=== PATIENT | male | born 1965 | race Caucasian/White ===

== ENCOUNTER 2021-05-19 07:59 | Inpatient (IN) ==
--- NOTE | 2021-05-03 08:04 | History & Physical Report ---
Date of Service May 03, 2021 date of surgery: 05/19/21 Procedure: Bilateral Total Knee Arthroplasty Surgeon: Kyrie Cowart Assessment & Plan (1) Degenerative arthritis of knee, bilateral: Plan: Risks and benefits of procedure discussed in detail today, patient would like to proceed with Bilateral total knee replacements at [facility] as scheduled. will obtain medical clearance from Dr Wheeler prior to surgery as well as obtain PATs at [facility]. Will place on Xarelto x 2 weeks post-op, f/u 2 weeks post op for routine post-operative care and x-ray, sooner if having any problems. will make arrangements for HHPT at the time of discharge. At this point in time, has failed conservative measures and would like to proceed with surgical intervention. The risks and benefits have been discussed including, but not limited to, risk of infection, nerve injury, stiffness, loss of motion, failure to improve, etc. Reasonable outcomes and options of treatment were discussed. An explanation of appropriate alternatives to the procedure that may be advantageous were discussed and their risks and benefits, as well as the risks and benefits of not proceeding with treatment. I offered to answer any additional inquiries concerning the treatment involved. All the patient's questions were answered. The patient is agreeable, understanding of the treatment plan and alternatives, and wishes to proceed with the treatment plan. History of Present Illness Chief Complaint: Bilateral knee pain Primary Care Provider: Hal Curiel MD Mr Celso BRISENO is a 56 year old male who complains of bilateral knee pain, presents for pre-op evaluation prior to bilateral total knee replacements at [facility]. He states that the symptoms have been chronic non-traumatic and has gradually worsened. Currently the patient states that the symptoms are moderate- severe and is described as aching, throbbing, sharp and shooting. The symptoms are aggravated by ascending stairs, daily activities, descending stairs, driving, exercise, first steps while awake, jumping, kneeling, movement, repetitive activities, sleeping in any position, squatting, standing and walking. In addition to knee pain equally on both sides the patient is also experiencing decreased mobility, crepitus, difficulty bending, difficulty going to sleep, instability, joint pain, limping, locking, nighttime awakening, pain, stiffness, tenderness and weakness. Prior NSAIDs include IBU and Aleve. Patient has had arthroscopic surgery. 04/10/12 Dr. Minor performed Arthroscopic partial medial meniscectomy, right knee. 02/08/11 Dr. Cowart performed Arthroscopic partial medial meniscectomy, Removal of multiple chondral loose bodies. Allergies Allergy/AdvReac Type Severity Reaction Status Date / Time No Known Allergies Allergy Verified 12/11/20 16:15 Home Medications Medication Instructions Recorded Confirmed Type aspirin 325 mg tablet 650 mg PO DAILY PRN 11/20/19 12/11/20 History naproxen sodium 220 mg capsule 220 mg PO Q12H PRN 11/20/19 12/11/20 History (Aleve) zinc 1 tab PO QPM 11/20/19 12/11/20 History Past Med/Surg History Medical History Osteoarthritis Surgical History History of arthroscopy of left knee History of arthroscopy of right knee History of tonsillectomy Family History Other No family history of adverse response to anesthesia Social History Smoking Status: Never smoker Second Hand Exposure: No; Hx Alcohol Use: Yes Hx Substance Use: No Preferred Language: Armenian Communication Ability: Effective Shot Core Drill Operator Required: No Beliefs That Will Affect Care: Uatsdin Uatsdin Beliefs: Restorationism Current Living Situation: Spouse Feels Safe at Home: Yes Assistive Devices: None Review of Systems Review of Systems: All systems reviewed & are unremarkable except as noted in HPI & below Constitutional: no fever, no chills and no sweats Respiratory: no cough and no dyspnea Cardiovascular: no chest pain, no dyspnea and no orthopnea Gastrointestinal: no abdominal pain, no nausea and no vomiting Musculoskeletal: as per Subjective / HPI Physical Exam Physical Exam: HT: 5ft 8in WT: 81.6kg BP: 140/82 Pulse: 90 Constitutional: WD/WN, vitals as above no acute distress Respiratory: normal respiratory effort, lungs clear to auscultation no respiratory distress, no labored breathing and does not use accessory muscles Cardiovascular: RRR, no murmur, no edema Gastrointestinal (Abdomen): normal bowel sounds, soft, nontender, no hepatosplenomegaly Musculoskeletal: Bilateral knee Physical exam Overall patient has varus alignment bilaterally, there is no atrophy or ecchymosis noted, +1 suprapatellar effusion in both knees, positive tenderness to both medial and lateral joint lines right knee, more medial sided tenderness to the left knee. negative patellar apprehension, positive crepitation noted to both knees with active ROM. bilateral knees stable to valgus and varus stress, efrain negative, posterior drawer negative. Range of motion right knee 0/3/110, left knee 0/3/115. lower extremities are neurovascularly intact, calf soft and non tender, DP pulse +2 bilaterally. Results & Data Results & Data ([place]) Diagnostic Findings bilateral knee series confirm advanced degenerative changes bilateral knees, greatest medial compartments and patellofemoral joints, showing joint space narrowing, osteophyte formation and subchondral sclerosis. no acute bony pathology noted, overall varus alignment bilateral.
--- NOTE | 2021-05-06 08:35 | Anesthesiology Consultation ---
Date of Service May 06, 2021 Assessment & Plan (1) Encounter for pre-operative examination: - COVID screening: Per assessment on 05/05: Travel screen negative, no known COVID-19 positive contacts or current COVID-19 related symptoms. Surgeon arranging preop COVID testing. Awaiting results. - PCP office visit (05/04/21): "Pt cleared for surgery." Chart Review Chart Review: Acceptable Risk for Surgery and Patient NOT seen in Pre Admission Testing History Surgery Operation Date: 05/19/21 11:30 Proposed Procedures p Bilateral Total Knee Arthroplasty - Kyrie Cowart DO Height/Weight Height: 5 ft 8 in Weight: 90.718 kg Allergies Allergy/AdvReac Type Severity Reaction Status Date / Time No Known Allergies Allergy Verified 05/05/21 15:07 Medications Home Medications Medication Instructions Recorded Confirmed Last Taken aspirin 325 mg tablet 650 mg PO DAILY PRN 11/20/19 05/05/21 Unknown naproxen sodium 220 mg capsule 220 mg PO Q12H PRN 11/20/19 05/05/21 Unknown (Aemrica) Past Medical History Medical History History of COVID-19 Tested positive 01/18/21 ([facility]). Symptoms at time: nausea, vomiting and diarrhea, fatigue. Treated at [facility] ER for dehydration and received Covid antibody treatment at [facility] > resolved Osteoarthritis Past Family History Family History Other No family history of adverse response to anesthesia Past Surgical History Surgical History History of arthroscopy of left knee History of arthroscopy of right knee History of tonsillectomy Social History Smoking Status: Never smoker Do You Dip or Chew Tobacco: No Hx Alcohol Use: Yes alcohol intake frequency: holidays/special occasions only Hx Substance Use: No substance use type: does not use Lab Results Anesthesia Preop Results Results Anesthesia Widget: WBC 5.30 K/uL (4.8-10.8) 05/05/21 Hgb 15.8 g/dL (14.0-18.0) 05/05/21 Hct 44.4 % (42-52) 05/05/21 Plt 241 K/uL (130-400) 05/05/21 Na 139 mmol/L (136-145) 05/05/21 K 3.9 mmol/L (3.5-5.1) 05/05/21 Cl 107 mmol/L (98-107) 05/05/21 CO2 26 mmol/L (21-32) 05/05/21 BUN 15 mg/dl (6-23) 05/05/21 Creat 0.89 mg/dl (0.6-1.4) 05/05/21 Glucose Level 103 mg/dl (70-99(Fasting)) H 05/05/21 PT 10.6 Seconds (9.0-12.0) 05/05/21 PTT 27.1 Seconds (21.0-31.0) 05/05/21 INR 1.0 (0.9-1.1) 05/05/21 HA1c 4.8 % (4.5-5.6) 05/05/21 Urine Color Yellow 05/05/21 Urine Appearance Clear (Clear) 05/05/21 Urine pH 5.0 (4.5-7.5) 05/05/21 Urine Specific [place] 1.019 (1.000-1.030) 05/05/21 Urine Protein Negative (Negative) 05/05/21 Urine Glucose (UA) Negative (Negative) 05/05/21 Urine Ketones Negative (Negative) 05/05/21 Urine Blood 1+ (Negative) H 05/05/21 Urine Nitrite Negative (Negative) 05/05/21 Urine Bilirubin Negative (Negative) 05/05/21 Urine Urobilinogen Negative (Negative) 05/05/21 Urine Leukocyte Esterase Negative (Negative) 05/05/21 Urine WBC (Auto) 1-5 /hpf (0-5) 05/05/21 Urine RBC (Auto) 0-4 /hpf (0-4) 05/05/21 Urine Hyaline Casts (Auto) 1-5 /lpf (0-5) 05/05/21 Urine Epithelial Cells (Auto) 5-10 /lpf (0-5) H 05/05/21 Urine Bacteria (Auto) Negative (Negative) 05/05/21 Testing Electrocardiogram Date: 12/15/20 Findings:+ NSR @ (74bpm ) Normal EKG per cardio Chest X-Ray Date: 12/15/20 Findings: + NAD
[~2021-05-19 07:59] MED LIST: ACETAMINOPHEN 500 MG TAB PO SCH; CeleBREX 200 MG CAP PO SCH; FAMOTIDINE 20 MG TAB PO SCH; GABAPENTIN 600 MG DOSE PO SCH; LR 500ML BOLUS, THEN 15ML/HR IV SCH; METOCLOPRAMIDE HCL 10 MG TABLET PO SCH; ROPIVACAINE 0.5% HCL/PF 150 MG, BUPIVACAINE 0.75% MPF 20 ML, EPINEPHrine 30MG/30ML (OR ... INSTIL SCH; TRANEXAMIC ACID 1,000 MG **IV Intra-op IV SCH; TRANEXAMIC ACID 1,000 MG **IV Pre-op IV SCH; ceFAZolin 2000MG 2,000 MG/15 ML SYR IV SCH; dexAMETHasone 4 MG TAB PO SCH; oxyCODONE HCL 10 MG TABCR (OxyCONTIN) PO SCH
[2021-05-19] MEDS ORDERED: ROPIVACAINE 0.5% 5 MG/ML 30 ML VIAL ONE (08:44)
[2021-05-19] MEDS ORDERED: BUPIVACAINE 0.5 % 5 MG/1 ML PF 10ML VIAL ONE (08:44)
--- NOTE | 2021-05-19 08:54 | History & Physical Bridge Note ---
Date of Service May 19, 2021 History & Physical Bridge Note I have examined the patient, reviewed the History & Physical and in the interval since the performance of the History & Physical I have noted the following changes of clinical significance: no changes noted
[2021-05-19] MEDS ORDERED: fentaNYL citrate 100 MCG/2 ML VIAL IV PRN (10:08)
[2021-05-19] MEDS ORDERED: ATROPINE SULFATE 0.1 MG/ML 10ML SYR IV PRN (10:08)
[2021-05-19] MEDS ORDERED: ONDANSETRON INJ 2 MG/ML 2 ML VIAL IV PRN ×2 (10:08→14:56)
[2021-05-19] MEDS ORDERED: ePHEDrine sulfate 50 MG/ML AMP IV PRN (10:08)
[2021-05-19] MEDS ORDERED: MIDAZOLAM HCL 1 MG/ML 2ML VIAL ONE (10:38)
[2021-05-19] MEDS ORDERED: fentaNYL citrate 100 MCG/2 ML VIAL ONE (10:38)
[2021-05-19] MEDS ORDERED: ORTHO JOINT ANESTHETIC ONE (10:56)
[2021-05-19] MEDS ORDERED: LIDOCAINE 2%/EPINEPHRINE 1:200,000 20 ML SDV ONE (11:46)
[2021-05-19] MEDS ORDERED: PROPOFOL IV EMULSION 10 MG/ML 20 ML VIAL IV ONE (13:03)
--- NOTE | 2021-05-19 13:16 | Operative Report ---
Post Operative Report Pre & Post Diagnosis Operation Date: 05/19/21 10:35 Pre-Op Diagnosis: Right Knee Osteoarthritis, Left Knee Osteoarthritis Post-Op Diagnosis: Right Knee Osteoarthritis, Left Knee Osteoarthritis I identified the patient and participated in the time-out.: Yes Procedure Operation Date: 05/19/21 10:35 Actual Procedures p Bilateral Total Knee Arthroplasty(Bilateral) utilizing [employer] journey to nonblock total knee arthroplasty left size 6 femur size 6 tibia 10 polyethylene patella 32 oval right size 6 femur 6 tibia 12 polyethylene size 35 patella Kyrie Cowart DO Surgeon Kyrie Cowart DO [employer] Lab Technician Lucio GOTTI Estimated Blood Loss 10 Findings Consistent with Post-Op Diagnosis Patient presents with severe end-stage DJD 8 degree flexion contractures of bilateral knees varus alignment subchondral eburnated [id number] bilateral knees with marginal osteophytes moderate to large effusion subchondral cystic changes on the tibial side on both knees Specimens Bone and cartilage Drains Medium bore Hemovac Anesthesia Type MAC Spinal Regional Complications none Disposition Accompanied Patient To Recovery: No Disposition: Recovery Room Indications Patient presents with severe end-stage tricompartmental DJD [id number] eburnated bone as described above patient is failed times a viscosupplementation corticosteroid injection relative rest activity modification patient presents with severe end-stage DJD with varus knees for total knee arthroplasty bilateral Description of Procedure After proper prepping and draping of the bilateral lower extremities, an anterior midline incision was made over the region of the extensor extensor mechanism of the left knee. After meticulous hemostasis was obtained and maintained in subcutaneous tissues a medial parapatellar incision was made The patella was subluxed lateralward the medial lateral gutter were cleaned from any hypertrophic synovitis and scar tissue of the distal femoral block was placed and the distal femoral osteotomy cut was made subsequently the chamfers anterior and posterior osteotomy cuts were made utilizing the 4-in-1 block the tibia was subsequently subluxed anteriorward medial and ateral meniscal remnants were excised in their entirety remnants of the anterior and posterior cruciate ligaments were excised in their entirety excellent exposure of the proximal tibia was obtained the tibial osteotomy guide was placed on the proximal tibial osteotomy cut was made once again the knee was irrigated with copious amounts of sterile saline solution the patella was subsequently everted lateralward thickened scar tissue around the patella was removed the patella was subsequently cut utilizing a freehand technique and was drilled prepared for final preparation and placement of patella socially flexion-extension gaps were checked and the equal and symmetric trials were placed to the appropriate femoral and tibial trials with poly-spacer being placed for equal flexion and extension gaps and full range of motion including extension to 0 and flexion to 140 the trial components after having been taken to recovery range of motion was subsequently removed meticulous hemostasis was obtained and maintained subsequently a knee block injection of joint cocktail including ropivacaine 0.5% 150 mg. Bupivacaine 0.5% epinephrine 1-200,030 mL's toradol 30 mg dexamethasone 4 mg ketamine 10 mg clonidine 100 micrograms normal saline solution 30 mg was infiltrated into the soft tissues of the posterior knee medial lateral gutters and periosteal synovium special attention was paid to protect neurovascular structures at all times subsequently trial components having been removed the knee was irrigated with sterile saline solution. debris was removed the proximal tibia was subsequently prepared and was made ready for the placement of the tibial component tibial component was also cemented and tamped into position the femoral component was subsequently placed and cemented in the position the patellar component was subsequently cemented in position because hemostasis once again obtained and maintained wound having been thoroughly irrigated with debridement and debridement lavage was performed as well as a medial parapatellar incision closed with #1 Vicryl in interrupted fashion subcutaneous was closed with #2 Vicryl skin was closed with skin clips Next, an anterior midline incision was made over the region of the extensor extensor mechanism of the right knee. After meticulous hemostasis was obtained and maintained in subcutaneous tissues a medial parapatellar incision was made The patella was subluxed lateralward the medial lateral gutter were cleaned from any hypertrophic synovitis and scar tissue of the distal femoral block was placed and the distal femoral osteotomy cut was made subsequently the chamfers anterior and posterior osteotomy cuts were made utilizing the 4-in-1 block the tibia was subsequently subluxed anteriorward medial and ateral meniscal remnants were excised in their entirety remnants of the anterior and posterior cruciate ligaments were excised in their entirety excellent exposure of the proximal tibia was obtained the tibial osteotomy guide was placed on the proximal tibial osteotomy cut was made once again the knee was irrigated with copious amounts of sterile saline solution the patella was subsequently everted lateralward thickened scar tissue around the patella was removed the patella was subse quently cut utilizing a freehand technique and was drilled prepared for final preparation and placement of patella socially flexion-extension gaps were checked and the equal and symmetric trials were placed to the appropriate femoral and tibial trials with poly-spacer being placed for equal flexion and extension gaps and full range of motion including extension to 0 and flexion to 140 the trial components after having been taken to recovery range of motion was subsequently removed meticulous hemostasis was obtained and maintained subsequently a knee block injection of joint cocktail including ropivacaine 0.5% 150 mg. Bupivacaine 0.5% epinephrine 1-200,030 mL's toradol 30 mg dexamethasone 4 mg ketamine 10 mg clonidine 100 micrograms normal saline solution 30 mg was infiltrated into the soft tissues of the posterior knee medial lateral gutters and periosteal synovium special attention was paid to protect neurovascular structures at all times subsequently trial components having been removed the knee was irrigated with sterile saline solution. debris was removed the proximal tibia was subsequently prepared and was made ready for the placement of the tibial component tibial component was also cemented and tamped into position the femoral component was subsequently placed and cemented in the position the patellar component was subsequently cemented in position because hemostasis once again obtained and maintained wound having been thoroughly irrigated with debridement and debridement lavage was performed as well as a medial parapatellar incision closed with #1 Vicryl in interrupted fashion subcutaneous was closed with #2 Vicryl skin was closed with skin clips.. PA-C was necessary for prepping and drapping as well as wound closure of deep fascia Sub cutaneous tissue and skin and was necessary for the case. A sterile compressive dressings were placed, patient was taken to recovery in stable condition of report dictated by Supa I attest to the content of the Intraoperative Record and any orders documented therein. Any exceptions are noted below.Due to the complex nature of the procedure, the entire surgery was performed with the operational assistance of Nishant GOTTI The warehouse administrative assistant, under direct supervision, was involved in the actual performance of all aspects of the surgical procedure including hemostasis, tissue retraction and incision, instrument management, patient positioning, and wound closure. I attest to the content of the Intraoperative Record and any orders documented therein. Any exceptions are noted below.
--- NOTE | 2021-05-19 14:35 | Anesthesia Procedure Note ---
Date of Service May 19, 2021 Anesthesia Post Epidural Note Vital Signs Vital Signs: Temp Pulse Resp BP Pulse Ox 36.6 C 76 17 111/63 96 05/19/21 14:01 05/19/21 14:20 05/19/21 14:20 05/19/21 14:20 05/19/21 14:20 Pain Intensity Bilateral Knee: Pain Intensity: 2 Notes Mental Status: alert / awake / arousable and participated in evaluation Patient Amnestic to Procedure: Yes Nausea / Vomiting: adequately controlled Pain: adequately controlled Airway Patency, RR, SpO2: stable & adequate BP & HR: stable & adequate Hydration State: stable & adequate Neuraxial Anesthesia: was administered and sensory block is resolving Anesthetic Complications: no major complications apparent and Pt Satisfied with anesthetic care Epidural: Removed without complications and With tip intact
--- NOTE | 2021-05-19 14:35 | Anesthesiology Progress Note ---
Date of Service May 19, 2021 Anesthesia Post Procedure Vital Signs Vital Signs: Temp Pulse Pulse Resp BP Pulse Ox 05/19/21 14:20 76 17 111/63 96 05/19/21 14:10 74 18 96/57 L 97 05/19/21 14:01 36.6 C 76 18 99/60 L 97 05/19/21 08:38 36.7 C 79 18 163/96 H 96 Pain Intensity Bilateral Knee: Pain Intensity: 2 Transfer of Care Handoff Completed per policy Notes Mental Status: alert / awake / arousable Patient Amnestic to Procedure: Yes Nausea / Vomiting: adequately controlled Pain: adequately controlled Airway Patency, RR, SpO2: stable & adequate BP & HR: stable & adequate Hydration State: stable & adequate Neuraxial Anesthesia: was administered and sensory block is resolving Anesthetic Complications: no major complications apparent and Pt Satisfied with anesthetic care
--- NOTE | 2021-05-19 14:46 | XRay Report ---
XR knee LT 1 or 2V routine CLINICAL HISTORY: Surgical Post Op COMPARISON: None FINDINGS: Alignment of the total left knee arthroplasty is anatomic. No periprosthetic fracture or u nexpected radiopaque foreign body. Surgical drains are in place. IMPRESSION: Expected findings following total left knee arthroplasty. ACT 112: Negative or not required by law. Electronically signed by: Angel Head M.D. 05/19/2021 2:45 PM
--- NOTE | 2021-05-19 14:46 | XRay Report ---
XR knee RT 1 or 2V routine CLINICAL HISTORY: Surgical Post Op COMPARISON: None FINDINGS: Alignment of the total right knee arthroplasty is anatomic. There is no periprosthetic fra cture or unexpected radiopaque foreign body. Surgical drains are in place. IMPRESSION: Expected findings following total right knee arthroplasty. ACT 112: Negative or not required by law. Electronically signed by: Angel Head M.D. 05/19/2021 2:44 PM
[2021-05-19] MEDS ORDERED: NALOXONE HCL 0.4 MG/1 ML VIAL/CARP IV PRN (14:56)
[2021-05-19] MEDS ORDERED: HYDROmorphone INJ 0.5 MG/0.5 ML SYR IV PRN (14:56)
[2021-05-19] MEDS ORDERED: bisacodyL 10 MG SUPP PR PRN (14:56)
[2021-05-19] MEDS ORDERED: MAGNESIUM HYDROXIDE SUSP 30 ML UDC PO PRN (14:56)
[2021-05-19] MEDS: SODIUM CHLORIDE 0.9% 1000ML 1,000 ML IV SCH (15:10)
--- NOTE | 2021-05-19 16:19 | Consultation ---
Date of Consultation May 19, 2021 Assessment & Plan (1) Degenerative arthritis of knee, bilateral: Degenerative arthritis of knee, bilateral Status post bilateral TKA by Dr. Cowart, POD #0 EBL: 10 mL Tolerated procedure well Pain/wound management per orthopedics Activity and therapy as directed by orthopedics Educated on incentive spirometry and encourage every hour DVT prophylaxis ASA twice daily per orthopedics Patient is currently not on any home medications HLD total chol 10/03 226 currently not on any regimen recommend repeat at follow up with PCP Microscopic hematuria on pre operative urine repeat UA PCP: Dr. Brown/Dr. Giordano Full code We will follow along during hospital stay, thank you for this consultation. Patient was seen and examined in collaboration with Dr. Martin, please see addendum History of Present Illness Requesting Physician: Dr. Cowart Reason for Consultation: Postop medical management Attending Physician: Kyrie Cowart, DO History of Present Illness This is a 56-year-old male who has significant past medical history of osteoarthritis of bilateral knees who presents for elective bilateral total knee arthroplasties by Dr. Cowart. He follows with [facility] clinic at [facility] with Dr. Brown. He denies any chronic medical problems including hypertension, hyperlipidemia, heart disease or diabetes. He does not take any prescription medications on a regular basis. He denies any tobacco or illicit drug use. He does socially drink alcohol with a few drinks monthly. 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 He denies any recent fever, chills, sweats, lightheadedness, dizziness, chest pain, shortness of breath, cough, nausea, vomiting, abdominal pain. He is currently able to move his bilateral toes and is starting to regain feeling of bilateral lower extremities. His medical records from [facility] were reviewed. It does appear in September 2020 he did have a elevated total cholesterol at 226 and LDL at 147. He is currently not any prescription medication for this. Allergies Allergy/AdvReac Type Severity Reaction Status Date / Time No Known Allergies Allergy Verified 05/19/21 08:35 Home Medications Medication Instructions Recorded Confirmed Type aspirin 325 mg tablet 650 mg PO DAILY PRN 11/20/19 05/19/21 History naproxen sodium 220 mg capsule 220 mg PO Q12H PRN 11/20/19 05/19/21 History (Aleve) acetaminophen 500 mg tablet 1,000 mg PO Q8 21 Days #126 tab 04/08/22 Rx (Tylenol Extra Strength) cefadroxil 500 mg capsule 500 mg PO BID 14 Days #28 cap 05/21/21 Rx docusate sodium 100 mg capsule 100 mg PO BID 10 Days #20 cap 05/21/21 Rx oxycodone 5 mg tablet 5 - 10 mg PO Q6H PRN #30 tab 05/21/21 Rx rivaroxaban 10 mg tablet (Xarelto) 10 mg PO DAILY 28 Days #28 tab 05/21/21 Rx Patient History Medical History History of COVID-19 Tested positive 01/18/21 ([facility]). Symptoms at time: nausea, vomiting and diarrhea, fatigue. Treated at [facility] ER for dehydration and received Covid antibody treatment at [facility] [place] > resolved Osteoarthritis Surgical History History of arthroscopy of left knee History of arthroscopy of right knee History of tonsillectomy Family History Other No family history of adverse response to anesthesia Stroke Social History Smoking Status: Never smoker Second Hand Exposure: No; Do You Dip or Chew Tobacco: No; Tobacco Cessation Education Requested by Patient: No Hx Alcohol Use: Yes Hx Substance Use: No Preferred Language: Turkmen Communication Ability: Effective 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 Beliefs That Will Affect Care: Baptist Baptist Beliefs: Islam Current Living Situation: Spouse Other Information That Helps Us Care for You: No Feels Safe at Home: Yes Safety Concerns: Feels Safe At This Time Assistive Devices: Walker and Wheelchair Review of Systems Review of Systems: All systems reviewed & are unremarkable except as noted in HPI & below Physical Exam Physical Exam: Constitutional: WD/WN, vitals as above, NAD, sitting up in bed, pleasant, conversing easily Head: Normocephalic, Atraumatic Eyes: PERRL, conjunctivae normal, anicteric sclerae ENMT: external ear and nose normal, oropharynx normal Neck: trachea midline, no thyromegaly normal visual inspection Respiratory: normal respiratory effort, lungs clear to auscultation, no wheeze, rales, rhonchi. Normal insp/exp effort, no accessory muscle use Cardiovascular: RRR, no murmur, no edema Vessels: no JVD or carotid bruit Chest: normal inspection of chest Abdomen: normal bowel sounds, soft, nontender, no hepatosplenomegaly Musculoskeletal: no cyanosis or clubbing, bilateral knee dressings in place, wound vacs in place, ice in place Skin: no rashes, warm and dry normal turgor Neurologic: PERRL, EOMI, accommodation nl, no face palsy, no dysarthria CN's II-XI intact bilaterally and moves all extremities Psychiatric: A+Ox3, euthymic affect Lymphatic: no cervical or axillary lymphadenopathy : deferred Results & Data ([facility]) Vital Signs (Past 12 Hours) Vital Signs Temp Pulse Pulse Resp BP BP Pulse Ox 05/19/21 15:45 36.3 C L 66 16 109/70 94 05/19/21 15:13 36.3 C L 69 16 112/75 94 05/19/21 14:45 36.3 C L 69 16 104/71 95 05/19/21 14:30 36.4 C L 70 18 111/62 96 05/19/21 14:20 76 17 111/63 96 05/19/21 14:10 74 18 96/57 L 97 05/19/21 14:01 36.6 C 76 18 99/60 L 97 05/19/21 08:38 36.7 C 79 18 163/96 H 96 Laboratory Results Preop lab from 05/05/2021 CBC: WBC 5.30, hemoglobin 15.8, hematocrit 44.4, platelet 241 Chemistry: Sodium 139, K3.9, chloride 107, BUN 15, creatinine 0.89, glucose 103 SARS-CoV-2 negative Urine revealed +1 blood Diagnostic Findings Knee X-Ray 05/19/21 14:16 XR knee RT 1 or 2V routine CLINICAL HISTORY: Surgical Post Op COMPARISON: None FINDINGS: Alignment of the total right knee arthroplasty is anatomic. There is no periprosthetic fracture or unexpected radiopaque foreign body. Surgical drains are in place. IMPRESSION: Expected findings following total right knee arthroplasty. ACT 112: Negative or not required by law. Electronically signed by: Angel Head M.D. 05/19/2021 2:44 PM Knee X-Ray 05/19/21 14:16 XR knee LT 1 or 2V routine CLINICAL HISTORY: Surgical Post Op COMPARISON: None FINDINGS: Alignment of the total left knee arthroplasty is anatomic. No periprosthetic fracture or unexpected radiopaque foreign body. Surgical drains are in place. IMPRESSION: Expected findings following total left knee arthroplasty. ACT 112: Negative or not required by law. Electronically signed by: Angel Head M.D. 05/19/2021 2:45 PM Medications Administered Current Inpatient Medications Acetaminophen (Acetaminophen 500 Mg Tab) 1,000 mg PO Q8 MICHELET Stop: 06/18/21 21:59 Aspirin (Aspirin 81 Mg Ectab) 81 mg PO BID MICHELET Stop: 06/18/21 20:59 Bisacodyl (Bisacodyl 10 Mg Supp) 10 mg [place] DAILY PRN PRN Reason: Constipation Stop: 06/18/21 14:55 Docusate Sodium (Docusate Sodium 100 Mg Cap) 100 mg PO BID MICHELET Stop: 06/18/21 20:59 Hydromorphone HCl (Hydromorphone Inj 0.5 Mg/0.5 Ml Syr) 0.5 mg IV Q4H PRN PRN Reason: Pain or Pre PT Stop: 06/02/21 14:55 Sodium Chloride (Nss 1000ml) 1,000 mls @ 100 mls/hr IV .Q10H MICHELET Stop: 05/20/21 06:00 Last Admin: 05/19/21 15:10 Dose: 100 mls/hr Documented by: Cefazolin Sodium (Ancef 2000mg) 2,000 mg in 15 mls @ 3.75 mls/min IV Q8H MICHELET; Protocol Stop: 05/20/21 03:03 Ketorolac Tromethamine (Ketorolac 30 Mg/Ml Vial) 30 mg IV Q6H MICHELET Stop: 05/20/21 15:01 Magnesium Hydroxide (Magnesium Hydroxide Susp 30 Ml Udc) 30 ml PO Q6H PRN PRN Reason: Constipation Stop: 06/18/21 14:55 Multivitamins (Multivitamin Tab) 1 tab PO QAM MICHELET Stop: 06/19/21 08:59 Naloxone HCl (Naloxone Hcl 0.4 Mg/1 Ml Vial/Carp) 0.1 mg IV Q5M PRN PRN Reason: Oversedation/Resp Depression Stop: 06/18/21 14:55 Ondansetron HCl (Ondansetron Inj 2 Mg/Ml 2 Ml Vial) 4 mg IV Q6H PRN PRN Reason: Nausea And Vomiting Stop: 06/18/21 14:55 Oxycodone HCl (Oxycodone Hcl Ir 5 Mg Tab (Immediate Release)) 5 - 10 mg PO Q4H PRN PRN Reason: Pain or Pre PT Stop: 06/02/21 14:55 Sennosides (Senna 8.6 Mg Tab) 17.2 mg PO HS MICHELET Stop: 06/18/21 20:59 ECG Rate (beats per minute): 74 Rhythm: normal sinus
[2021-05-19] MEDS: ceFAZolin 2000MG 2,000 MG/15 ML SYR IV SCH (18:31)
[2021-05-19 18:33] LABS: Appearance Urine Cloudy (Clear); Bacteria Urine Automated Negative (Negative); Bilirubin Urine Negative (Negative); Blood Urine Negative (Negative); Color Urine Yellow; Epithelial Cell Urine Auto 0-5 /lpf (0-5); Glucose Urine UA Negative (Negative); Ketones Urine Trace (Negative); Leukocyte Esterase Urine Negative (Negative); Nitrite Urine Negative (Negative); Protein Urine Negative (Negative); RBC Urine Automated 0-4 /hpf (0-4); Specific Gravity Urine 1.029 (1.000-1.030); Urobilinogen Urine Negative (Negative); WBC Urine Automated 0 /hpf (0-5); pH Urine 5.5 (4.5-7.5)
[2021-05-19] MEDS: ASPIRIN 81 MG ECTAB PO SCH (21:19)
[2021-05-19] MEDS: DOCUSATE SODIUM 100 MG CAP PO SCH (21:20)
[2021-05-19] MEDS: SENNA 8.6 MG TAB PO SCH (21:20)
[2021-05-19] MEDS: KETOROLAC 30 MG/ML VIAL IV SCH (21:20)
[2021-05-19] MEDS: ACETAMINOPHEN 500 MG TAB PO SCH (21:49)
[2021-05-20] MEDS: SODIUM CHLORIDE 0.9% 1000ML 1,000 ML IV SCH (00:57)
[2021-05-20] MEDS: ceFAZolin 2000MG 2,000 MG/15 ML SYR IV SCH (02:54)
[2021-05-20] MEDS: KETOROLAC 30 MG/ML VIAL IV SCH ×3 (02:54→15:37)
[2021-05-20] MEDS: ACETAMINOPHEN 500 MG TAB PO SCH ×3 (05:59→21:51)
[2021-05-20 07:23] LABS: Hematocrit (blood only) 34.1 % (42-52); Hemoglobin 12.3 g/dL (14.0-18.0); Mean Corpuscular Hemoglobin 31.3 pg (25-34); Mean Corpuscular Hgb Conc 36.1 g/dL (32-36); Mean Corpuscular Volume 86.8 fL (80-100); Mean Platelet Volume 10.8 fL (7.4-10.4); Platelet Count 229 K/uL (130-400); RDW Coefficient of Variation 12.9 % (11.5-14.5); RDW Standard Deviation 41.4 fL (36.4-46.3); Red Blood Count 3.93 M/uL (4.7-6.1); White Blood Count 18.61 K/uL (4.8-10.8)
[2021-05-20] MEDS: DOCUSATE SODIUM 100 MG CAP PO SCH ×2 (07:23→20:24)
[2021-05-20] MEDS: ASPIRIN 81 MG ECTAB PO SCH (07:23)
[2021-05-20] MEDS: MULTIVITAMIN TAB PO SCH (07:23)
[2021-05-20 07:43] LABS: BUN Creatinine Ratio 19.8 (10-20); Calcium 8.2 mg/dl (8.5-10.1); Creatinine Clr Calc Pharmacy 90.6 ml/min; Est GFR (African American) 95.9 ml/min; Est GFR (Non-African American) 82.8 ml/min; Potassium 4.1 mmol/L (3.5-5.1)
--- NOTE | 2021-05-20 09:08 | Orthopedic Progress Note ---
Date of Service May 20, 2021 Assessment & Plan (1) Degenerative arthritis of knee, bilateral: Plan: Post op day 1 status post bilateral total knee arthroplasties PT/OT protocols. Weightbearing as tolerated. DVT prophylaxis -Xarelto p.o. daily, SCDs, LEAH lincoln. Pain management as written. Leukocytosis-likely secondary to surgical stress and/or preoperative steroids. Patient currently asymptomatic. DC planning-patient planning for home health services upon discharge. Admission and Anticipated Discharge Date Admission Date: May 19, 2021 Subjective POD 1 Patient is sitting up in bed awake and alert. Complaints this morning. Pain is controlled. Denies shortness of breath, chest pain, lightheadedness. Denies calf pain. Physical Exam Physical Exam: Dressings clean, dry, and intact bilaterally. Calves are soft and nontender. Neurovascular is intact. Toes are mobile. Patient has good dorsiflexion and plantarflexion of both feet. Hemovac drainage was 100 mL from the right and left knees. Results & Data ([facility]) Vital Signs (Past 12 Hours) Vital Signs Temp Pulse Resp BP Pulse Ox 05/20/21 07:42 36.7 C 81 16 118/76 95 05/20/21 02:55 36.8 C 86 18 96/61 L 97 05/19/21 23:00 36.7 C 87 16 107/64 94 Laboratory Results Laboratory Results WBC 18.61 K/uL (4.8-10.8) H 05/20/21 06:45 RBC 3.93 M/uL (4.7-6.1) L 05/20/21 06:45 Hgb 12.3 g/dL (14.0-18.0) L 05/20/21 06:45 Hct 34.1 % (42-52) L 05/20/21 06:45 MCV 86.8 fL (80-100) 05/20/21 06:45 MCH 31.3 pg (25-34) 05/20/21 06:45 MCHC 36.1 g/dL (32-36) H 05/20/21 06:45 RDW Std Deviation 41.4 fL (36.4-46.3) 05/20/21 06:45 RDW Coeff of Lyly 12.9 % (11.5-14.5) 05/20/21 06:45 Plt Count 229 K/uL (130-400) 05/20/21 06:45 MPV 10.8 fL (7.4-10.4) H 05/20/21 06:45 Sodium 138 mmol/L (136-145) 05/20/21 06:45 Potassium 4.1 mmol/L (3.5-5.1) 05/20/21 06:45 Chloride 110 mmol/L (98-107) H 05/20/21 06:45 Carbon Dioxide 20 mmol/L (21-32) L 05/20/21 06:45 Anion Gap 8 (3-11) 05/20/21 06:45 BUN 20 mg/dl (6-23) 05/20/21 06:45 Creatinine 1.01 mg/dl (0.6-1.4) 05/20/21 06:45 Est Cr Clr Drug Dosing 90.6 ml/min 05/20/21 06:45 Est GFR ( Amer) 95.9 ml/min 05/20/21 06:45 Est GFR (Non-Af Amer) 82.8 ml/min 05/20/21 06:45 BUN/Creatinine Ratio 19.8 (10-20) 05/20/21 06:45 Glucose 159 mg/dl (70-99(Fasting)) H 05/20/21 06:45 Calcium 8.2 mg/dl (8.5-10.1) L 05/20/21 06:45 Urine Color Yellow 05/19/21 18:25 Urine Appearance Cloudy (Clear) A 05/19/21 18:25 Urine pH 5.5 (4.5-7.5) 05/19/21 18:25 Ur Specific [place] 1.029 (1.000-1.030) 05/19/21 18:25 Urine Protein Negative (Negative) 05/19/21 18:25 Urine Glucose (UA) Negative (Negative) 05/19/21 18:25 Urine Ketones Trace (Negative) H 05/19/21 18:25 Urine Blood Negative (Negative) 05/19/21 18:25 Urine Nitrite Negative (Negative) 05/19/21 18:25 Urine Bilirubin Negative (Negative) 05/19/21 18:25 Urine Urobilinogen Negative (Negative) 05/19/21 18:25 Ur Leukocyte Esterase Negative (Negative) 05/19/21 18:25 Urine WBC (Auto) 0 /hpf (0-5) 05/19/21 18:25 Urine RBC (Auto) 0-4 /hpf (0-4) 05/19/21 18:25 U Hyaline Cast (Auto) 1-5 /lpf (0-5) 05/19/21 18:25 U Epithel Cells (Auto) 0-5 /lpf (0-5) 05/19/21 18:25 Urine Bacteria (Auto) Negative (Negative) 05/19/21 18:25 SARS-CoV-2, RNA, NAAT NEGATIVE (NEGATIVE) 05/19/21 Unknown Blood Type O Positive 05/19/21 08:32 Antibody Screen NEGATIVE 05/19/21 08:32 Impressions Knee X-Ray 05/19/21 14:16 XR knee LT 1 or 2V routine CLINICAL HISTORY: Surgical Post Op COMPARISON: None FINDINGS: Alignment of the total left knee arthroplasty is anatomic. No periprosthetic fracture or unexpected radiopaque foreign body. Surgical drains are in place. IMPRESSION: Expected findings following total left knee arthroplasty. ACT 112: Negative or not required by law. Electronically signed by: Angel Head M.D. 05/19/2021 2:45 PM
[2021-05-20] MEDS: RIVAROXABAN 10 MG TABLET PO SCH (10:53)
[2021-05-20] MEDS: SENNA 8.6 MG TAB PO SCH (20:24)
--- NOTE | 2021-05-20 20:28 | Hospitalist Progress Note ---
Date of Service May 20, 2021 Assessment & Plan (1) Degenerative arthritis of knee, bilateral: Plan: Degenerative arthritis of knee, bilateral Status post bilateral TKA by Dr. Cowart, POD #1 No postop complication Continue pain control Continue incentive spirometry Hgb stable Continue monitor PT/OT eeval DVT px On Rivaroxaban Full code Admission and Anticipated Discharge Date Admission Date: May 19, 2021 Subjective Pt was seen and examined for postop follow up Lying in bed with no acute distress Pt said that he feels ok He said that pain is controllable He walked with therapy today in the hallway Denies any chest pain, palpitation, dizziness and SOB Review of Systems Review of Systems: All systems reviewed & are unremarkable except as noted in Subjective Physical Exam Physical Exam: General- No acute distress Head- atraumatic Eyes- PERRL, EOMI, ENT- oropharynx clear Neck- supple, no JVD Lungs- clear to auscultation Heart- regular rhythm; no murmur Abdomen- normal bowel sounds, soft, nontender Extremities- no calf tenderness, b/l knee tenderness Neuro- alert, oriented x 3; PERRL, EOMI; no facial palsy; no dysarthria Skin- warm & dry Results & Data Results & Data ([facility]) Vital Signs (Past 12 Hours) Vital Signs Temp Pulse Resp BP Pulse Ox 05/20/21 16:05 36.7 C 74 16 126/75 97 05/20/21 11:30 36.4 C L 76 16 143/75 H 96
[2021-05-21] MEDS: ACETAMINOPHEN 500 MG TAB PO SCH ×3 (05:50→22:16)
--- NOTE | 2021-05-21 06:57 | Orthopedic Progress Note ---
Date of Service May 21, 2021 Assessment & Plan (1) Degenerative arthritis of knee, bilateral: Plan: Post op day 2 status post bilateral total knee arthroplasties PT/OT protocols. Weightbearing as tolerated. DVT prophylaxis -Xarelto p.o. daily, SCDs, LEAH lincoln. Pain management as written. Leukocytosis-likely secondary to surgical stress and/or preoperative steroids. Patient currently asymptomatic. DC planning-patient planning for home health services upon discharge, will discharge after PT today. f/u in the office in 2 weeks as scheduled. Admission and Anticipated Discharge Date Admission Date: May 19, 2021 Subjective POD #2 s/p bilateral TKAs Review of Systems Constitutional: no fever and no chills Respiratory: no cough and no dyspnea Cardiovascular: no chest pain, no dyspnea and no orthopnea Gastrointestinal: no abdominal pain, no nausea and no vomiting Physical Exam Physical Exam: Vital Signs Temp 36.7 C 05/20/21 22:57 Pulse 77 05/20/21 22:57 Resp 18 05/20/21 22:57 BP 112/71 05/20/21 22:57 Pulse Ox 97 05/20/21 22:57 Intake & Output 05/20/21 05/20/21 05/21/21 06:59 18:59 06:59 Intake Total 2031.666 / 3331.66 6 760 / 1060 300 / 1060 Output Total 1175 / 1980 1050 / 7 977 / 2026 Balance 856.666 / 1351.666 -290 / -967 -677 / -967 Intake: IV 1481.666 / 1581.66 6 Sodium Chlorid e 0.9% 1000ML 1, 1481.666 / 1481.66 6 000 ml @ 100 m ls/hr IV .Q10H MICHELET Rx#:[id number] Oral 550 / 550 760 / 1060 300 / 1060 Output: Urine 650 / 1075 625 / 1325 700 / 1325 Drain Output 525 / 895 425 / 700 275 / 700 Left Knee Hemo vac 275 / 445 200 / 350 150 / 350 Right Knee Hem ovac 250 / 450 225 / 350 125 / 350 # Bowel Movement s 2 / 2 Other: # Unmeasured Voi ds 1 Musculoskeletal: Dressings clean, dry, and intact bilaterally. Calves are soft and nontender. Neurovascular is intact. Toes are mobile. Patient has good dorsiflexion and plantarflexion of both feet. Results & Data ([facility]) Vital Signs (Past 12 Hours) Vital Signs Temp Pulse Resp BP Pulse Ox 05/20/21 22:57 36.7 C 77 18 112/71 97
[2021-05-21] MEDS: MULTIVITAMIN TAB PO SCH (08:15)
[2021-05-21] MEDS: DOCUSATE SODIUM 100 MG CAP PO SCH ×2 (08:15→20:37)
[2021-05-21] MEDS: RIVAROXABAN 10 MG TABLET PO SCH (08:15)
[2021-05-21] MEDS ORDERED: ACETAMINOPHEN 1,000 MG/100 ML VIAL IV STA (09:04)
[2021-05-21] MEDS ORDERED: ACETAMINOPHEN 1000 MG/100 ML IV IV ONE (09:08)
[2021-05-21 09:37] LABS: Hematocrit (blood only) 28.9 % (42-52); Hemoglobin 10.2 g/dL (14.0-18.0); Mean Corpuscular Hemoglobin 30.9 pg (25-34); Mean Corpuscular Volume 87.6 fL (80-100); Mean Platelet Volume 10.2 fL (7.4-10.4); Platelet Count 190 K/uL (130-400); RDW Coefficient of Variation 13.6 % (11.5-14.5); RDW Standard Deviation 43.5 fL (36.4-46.3); White Blood Count 11.15 K/uL (4.8-10.8)
[2021-05-21 09:44] LABS: Mean Corpuscular Hgb Conc 35.3 g/dL (32-36)
[2021-05-21 09:56] LABS: BUN Creatinine Ratio 17.2 (10-20); Calcium 7.5 mg/dl (8.5-10.1); Creatinine Clr Calc Pharmacy 78.9 ml/min; Est GFR (African American) 81.1 ml/min; Potassium 3.6 mmol/L (3.5-5.1)
[2021-05-21] MEDS: oxyCODONE HCL IR 5 MG TAB (IMMEDIATE RELEASE) PO PRN ×2 (17:54→22:16)
[2021-05-21] MEDS: SENNA 8.6 MG TAB PO SCH (20:37)
--- NOTE | 2021-05-21 21:30 | Hospitalist Progress Note ---
Date of Service May 21, 2021 Assessment & Plan (1) Degenerative arthritis of knee, bilateral: Plan: Degenerative arthritis of knee, bilateral Status post bilateral TKA by Dr. Cowart, POD #1 On postop complication Continue pain control Continue incentive spirometry Hgb 10.2 today Continue monitor PT/OT eeval Fall precaution Near syncope Code purple called earlier Possible related to orthostatic hypotension vs vasovagal due to severe pain Systolic BP during the code purple was in the 70's Received 1 L normal saline bolus Continue monitor closely Hyperglycemia Glucose 147 Will check Hba1c Continue monitor BS DVT px On Rivaroxaban Full code Admission and Anticipated Discharge Date Admission Date: May 19, 2021 Subjective Patient was seen and examined for postop follow-up This morning code purple called because patient had a near syncopal episode in the bathroom Patient said he was having so much pain when he tried to bend his right knee BP during the code purple was low and he received 1 L bolus normal saline Later in the afternoon I checked on him he denied any symptoms Denies any Chest pain, palpitation, dizziness, shortness of breath. Review of Systems Review of Systems: All systems reviewed & are unremarkable except as noted in Subjective Physical Exam Physical Exam: General- No acute distress Head- at raumatic Eyes- PER RL, EOMI, ENT- felisha pharynx clear Neck - supple, no JVD L ungs- clear to aus cultation Heart- r egular rhythm; no murmur Abdomen- no rmal bowel sounds, soft, nontender E xtremities- no ca lf tenderness, b/l knee tenderness N euro- alert, orien jovana x 3; PERRL, EO TX; no facial pals y; no dysarthria S kin- warm & dry Results & Data Results & Data ([facility]) Vital Signs (Past 12 Hours) Vital Signs Temp Pulse Resp BP BP Pulse Ox 05/21/21 15:43 36.9 C 78 16 121/79 96 05/21/21 14:26 101/46 L 05/21/21 10:27 36.5 C 71 16 107/70 98
[2021-05-22] MEDS: oxyCODONE HCL IR 5 MG TAB (IMMEDIATE RELEASE) PO PRN ×5 (02:09→19:43)
[2021-05-22 05:44] LABS: Hematocrit (blood only) 28.9 % (42-52); Hemoglobin 10.7 g/dL (14.0-18.0); Mean Corpuscular Hemoglobin 32.5 pg (25-34); Mean Corpuscular Volume 87.8 fL (80-100); Mean Platelet Volume 10.2 fL (7.4-10.4); Platelet Count 181 K/uL (130-400); RDW Coefficient of Variation 13.5 % (11.5-14.5); RDW Standard Deviation 43.4 fL (36.4-46.3); Red Blood Count 3.29 M/uL (4.7-6.1); White Blood Count 10.23 K/uL (4.8-10.8)
[2021-05-22] MEDS: ACETAMINOPHEN 500 MG TAB PO SCH ×3 (05:51→23:18)
[2021-05-22] MEDS: DOCUSATE SODIUM 100 MG CAP PO SCH ×2 (08:43→22:16)
[2021-05-22] MEDS: RIVAROXABAN 10 MG TABLET PO SCH (08:43)
[2021-05-22] MEDS: MULTIVITAMIN TAB PO SCH (08:43)
--- NOTE | 2021-05-22 09:37 | Orthopedic Progress Note ---
Date of Service May 22, 2021 Assessment & Plan (1) Degenerative arthritis of knee, bilateral: Plan: Post op day 3 status post bilateral total knee arthroplasties PT/OT protocols. Weightbearing as tolerated. DVT prophylaxis -Xarelto p.o. daily, SCDs, LEAH lincoln. Pain management as written. With patient's lightheadedness during ambulation, we will see how he does today. Patient's preoperative hemoglobin was 15 and he has stabilized at around 10. Patient continues to have lightheadedness and dizziness with ambulation, consider starting him on IV fluids. Another consideration would be transfusing 1 unit of PRBCs with the noted 5 g loss in hemoglobin. We will see how he does today with his physical therapy. Plan for DC of his dressings and drains. DC planning-patient planning for home health services upon discharge, will discharge after PT today. f/u in the office in 2 weeks as scheduled. Admission and Anticipated Discharge Date Admission Date: May 19, 2021 Subjective Postop day 3 Patient sitting up in bed awake and alert. States he feels a little bit groggy from the pain medications this morning. No other complaints. Denies shortness of breath, chest pain, lightheadedness at this time. Physical Exam Physical Exam: Dressings remain intact with drains in place. Calves are soft and nontender. Neurovascular intact. Toes are mobile. Results & Data ([facility]) Vital Signs (Past 12 Hours) Vital Signs Temp Pulse Resp BP Pulse Ox 05/22/21 07:47 36.8 C 76 20 103/65 95 05/21/21 22:47 37 C 83 16 115/76 94 Laboratory Results 05/22/21 05/21/21 05/21/21 Range/Units 05:26 09:21 09:21 WBC 10.23 11.15 H (4.8-10.8) K/uL RBC 3.29 L 3.30 L (4.7-6.1) M/uL Hgb 10.7 L 10.2 L (14.0-18.0) g/dL Hct 28.9 L 28.9 L (42-52) % MCV 87.8 87.6 (80-100) fL MCH 32.5 30.9 (25-34) pg MCHC 37.0 H 35.3 (32-36) g/dL RDW Std Deviation 43.4 43.5 (36.4-46.3) fL RDW Coeff of Lyly 13.5 13.6 (11.5-14.5) % Plt Count 181 190 (130-400) K/uL MPV 10.2 10.2 (7.4-10.4) fL Sodium 139 (136-145) mmol/L Potassium 3.6 (3.5-5.1) mmol/L Chloride 109 H (98-107) mmol/L Carbon Dioxide 24 (21-32) mmol/L Anion Gap 6 (3-11) BUN 20 (6-23) mg/dl Creatinine 1.16 (0.6-1.4) mg/dl Est Cr Clr Drug Dosing 78.9 ml/min Est GFR ( Amer) 81.1 ml/min Est GFR (Non-Af Amer) 70.0 ml/min BUN/Creatinine Ratio 17.2 (10-20) Glucose 147 H (70-99(Fasting)) mg/dl Calcium 7.5 L (8.5-10.1) mg/dl
[2021-05-22] MEDS ORDERED: SODIUM CHLORIDE 0.9% 500 ML IV ONE (10:13)
--- NOTE | 2021-05-22 12:49 | Electrocardiogram Report ---
Test Reason : Blood Pressure : / mmHG Vent. Rate : 059 BPM Atrial Rate : 059 BPM P-R Int : 128 ms QRS Dur : 082 ms QT Int : 428 ms P-R-T Axes : 000 172 183 degrees QTc Int : 423 ms Sinus bradycardia Suspect multiple lead reversal, L leg appears to be L arm, R arm appears to be L leg and L arm appe ars to be R arm Precordial leads are probably malpositioned Probable Normal ECG When compared with ECG of 15-DEC-2020 12:24, No significant change taking into account lead reversal Confirmed by Collin Sena ([id number]) on 05/22/2021 12:48:48 PM Referred By: Kyrie Cowart Confirmed By:Collin Sena
[2021-05-22] MEDS ORDERED: SODIUM CHLORIDE 0.9% 1000ML 1,000 ML IV ONE (12:58)
[2021-05-22] MEDS: SENNA 8.6 MG TAB PO SCH (22:17)
--- NOTE | 2021-05-22 23:58 | Hospitalist Progress Note ---
Date of Service May 22, 2021 Assessment & Plan (1) Degenerative arthritis of knee, bilateral: Plan: Degenerative arthritis of knee, bilateral Status post bilateral TKA by Dr. Cowart, POD #1 On postop complication Continue pain control Continue incentive spirometry Hgb 10.2 today Continue monitor PT/OT eeval Fall precaution Near syncope Dizziness Code purple called yesterday Possible related to orthostatic hypotension vs vasovagal due to severe pain Systolic BP during the code purple was in the 70's Will give 500 cc bolus and maintenance IVF Continue monitor closely Fall precaution Hyperglycemia Glucose 147 Hba1c 4.8 Continue monitor BS DVT px On Rivaroxaban Full code Admission and Anticipated Discharge Date Admission Date: May 19, 2021 Subjective Patient was seen and examined for postop follow-up Lying in bed with no acute distress watching TV Pt said that he had lightheadedness at the end of physical therapy this morning Continue to have pain in both knee Denies any Chest pain, palpitation, dizziness, shortness of breath. Review of Systems Review of Systems: All systems reviewed & are unremarkable except as noted in Subjective Physical Exam 2 Physical Exam: General- No acute distress Head- at raumatic Eyes- PER RL, EOMI, ENT- felisha pharynx clear Neck - supple, no JVD L ungs- clear to aus cultation Heart- r egular rhythm; no murmur Abdomen- no rmal bowel sounds, soft, nontender E xtremities- no ca lf tenderness, b/l knee tenderness N euro- alert, orien jovana x 3; PERRL, EO PR; no facial pals y; no dysarthria S kin- warm & dry Results & Data Results & Data ([facility]) Vital Signs (Past 12 Hours) Vital Signs Temp Pulse Resp BP Pulse Ox 05/22/21 23:25 37.6 C H 98 H 16 132/72 93 05/22/21 15:48 36.8 C 80 16 117/71 97
[2021-05-23] MEDS: oxyCODONE HCL IR 5 MG TAB (IMMEDIATE RELEASE) PO PRN ×4 (02:36→19:52)
[2021-05-23] MEDS: ACETAMINOPHEN 500 MG TAB PO SCH ×3 (05:52→22:48)
[2021-05-23 06:09] LABS: Hematocrit (blood only) 28.1 % (42-52); Hemoglobin 9.8 g/dL (14.0-18.0); Mean Corpuscular Hemoglobin 30.8 pg (25-34); Mean Corpuscular Hgb Conc 34.9 g/dL (32-36); Mean Corpuscular Volume 88.4 fL (80-100); Mean Platelet Volume 10.2 fL (7.4-10.4); Platelet Count 194 K/uL (130-400); RDW Coefficient of Variation 13.3 % (11.5-14.5); RDW Standard Deviation 42.9 fL (36.4-46.3); Red Blood Count 3.18 M/uL (4.7-6.1); White Blood Count 8.55 K/uL (4.8-10.8)
[2021-05-23] MEDS: RIVAROXABAN 10 MG TABLET PO SCH (08:20)
[2021-05-23] MEDS: MULTIVITAMIN TAB PO SCH (08:20)
[2021-05-23] MEDS: DOCUSATE SODIUM 100 MG CAP PO SCH ×2 (08:20→21:07)
--- NOTE | 2021-05-23 09:36 | Orthopedic Progress Note ---
Date of Service May 23, 2021 Assessment & Plan (1) Degenerative arthritis of knee, bilateral: Plan: Post op day 4 status post bilateral total knee arthroplasties PT/OT protocols. Weightbearing as tolerated. DVT prophylaxis -Xarelto p.o. daily, SCDs, LEAH lincoln. Pain management -after discussion with the patient we will add MS Contin p.o. twice daily to see if this will help with his pain control during his activities. Orthostatic hypotension-appears to be a little better today. Hemoglobin is 9.8 this morning. Patient was given a bolus of fluids again yesterday with gentle hydration overnight. We will continue to see how he responds. DC planning-we were initially thinking home health services however with his limited ambulation, I [facility] with the patient. We discussed that they would be able to continue to control his pain through their pharmacy as well as give him appropriate physical therapy in the early stages. Patient is in agreement and we will discuss with case management. Admission and Anticipated Discharge Date Admission Date: May 19, 2021 Subjective Postop day 4 Patient undergoing his physical therapy this morning. It seems to be going a little bit better today. Blood pressures remaining stable however patient is ambulating on a minimal distance at this time. He states that he is continues to have the oxycodone does not appear to be covering. During the course of conversation, the patient was not having any lightheadedness, shortness of breath or chest pain. Other complaints at this time. Physical Exam Physical Exam: Santiago dressings are clean, dry, and intact. Functioning properly. Patient does have some knee swelling but is consistent with surgery. Calves are soft and nontender. Neurovascular is intact. Toes are mobile. Results & Data ([facility]) Vital Signs (Past 12 Hours) Vital Signs Temp Pulse Resp BP Pulse Ox 05/23/21 07:09 36.9 C 78 16 111/75 95 05/22/21 23:25 37.6 C H 98 H 16 132/72 93
[2021-05-23] MEDS: MoRPHine SULFATE CR 15 MG TABCR PO SCH ×2 (10:38→21:07)
[2021-05-23] MEDS: SENNA 8.6 MG TAB PO SCH (21:07)
--- NOTE | 2021-05-23 23:27 | Hospitalist Progress Note ---
Date of Service May 23, 2021 Assessment & Plan (1) Degenerative arthritis of knee, bilateral: Plan: Degenerative arthritis of knee, bilateral Status post bilateral TKA by Dr. Cowart, POD #4 On postop complication Continue pain control Continue incentive spirometry Hgb 9.8 today Continue monitor PT/OT eval Fall precaution Might consider inpatient rehab if continue to have severe pain and ambulatory discomfort Near syncope Dizziness Code meg called on 05/21 Possible related to orthostatic hypotension vs vasovagal due to severe pain Systolic BP during the code meg was in the 70's Received gentle hydration Continue monitor closely Fall precaution Hyperglycemia Hba1c 4.8 Continue monitor BS DVT px On Rivaroxaban Full code Admission and Anticipated Discharge Date Admission Date: May 23, 2021 Subjective Patient was seen and examined for postop follow-up Lying in bed with no acute distress watching TV Pt said the right knee continues to be painful Pain is worst when standing or moving his right knee certain way Denies any Chest pain, palpitation, dizziness, shortness of breath. Review of Systems Review of Systems: All systems reviewed & are unremarkable except as noted in Subjective Physical Exam Physical Exam: General- No acute distress Head- at raumatic Eyes- PER RL, EOMI, ENT- felisha pharynx clear Neck - supple, no JVD L ungs- clear to aus cultation Heart- r egular rhythm; no murmur Abdomen- no rmal bowel sounds, soft, nontender E xtremities- no ca lf tenderness, b/l knee tenderness N euro- alert, orien jovana x 3; PERRL, EO MD; no facial pals y; no dysarthria S kin- warm & dry Results & Data Results & Data ([facility]) Vital Signs (Past 12 Hours) Vital Signs Temp Pulse Resp BP Pulse Ox 05/23/21 22:27 37.2 C 97 H 16 130/77 96
[2021-05-24] MEDS: oxyCODONE HCL IR 5 MG TAB (IMMEDIATE RELEASE) PO PRN ×5 (00:31→22:14)
[2021-05-24] MEDS: ACETAMINOPHEN 500 MG TAB PO SCH ×3 (05:34→21:01)
--- NOTE | 2021-05-24 07:09 | Orthopedic Progress Note ---
Date of Service May 24, 2021 Assessment & Plan (1) Degenerative arthritis of knee, bilateral: Plan: Post op day 5 status post bilateral total knee arthroplasties PT/OT protocols. Weightbearing as tolerated. DVT prophylaxis -Xarelto p.o. daily, SCDs, LEAH lincoln. Pain management -after discussion with the patient we will add MS Contin p.o. twice daily to see if this will help with his pain control during his activities. Orthostatic hypotension-appears to be a little better today. Hemoglobin is 9.8 this morning. Patient was given a bolus of fluids again yesterday with gentle hydration overnight. We will continue to see how he responds. At this point, he is feeling a bit better this am, will see how he responds with PT today, if doing well he will be discharged home with HHPT. if there are any issues, we have also discussed [facility] vs SNF placement. will see how he performs in PT today. Admission and Anticipated Discharge Date Admission Date: May 23, 2021 Subjective POD #5 s/p bilateral TKA Review of Systems Constitutional: no fever and no chills Respiratory: no cough and no dyspnea Cardiovascular: no chest pain, no dyspnea and no orthopnea Gastrointestinal: no abdominal pain, no nausea and no vomiting Physical Exam Physical Exam: Vital Signs Temp 37.2 C 05/23/21 22:27 Pulse 97 H 05/23/21 22:27 Resp 16 05/23/21 22:27 BP 130/77 05/23/21 22:27 Pulse Ox 96 05/23/21 22:27 Intake & Output 05/23/21 05/24/21 05/24/21 18:59 06:59 18:59 Intake Total 775 / 775 Output Total 500 / 1100 600 / 1100 Balance -500 / -325 175 / -325 Intake: Oral 775 / 775 Output: Urine 500 / 1100 600 / 1100 Musculoskeletal: Bilateral lower extremities: Santiago dressings are clean, dry, and intact. Functioning properly. Calves are soft and nontender. Neurovascular is intact. Toes are mobile. Results & Data ([facility]) Vital Signs (Past 12 Hours) Vital Signs Temp Pulse Resp BP Pulse Ox 05/23/21 22:27 37.2 C 97 H 16 130/77 96
[2021-05-24] MEDS: DOCUSATE SODIUM 100 MG CAP PO SCH ×2 (07:45→21:01)
[2021-05-24] MEDS: MoRPHine SULFATE CR 15 MG TABCR PO SCH ×2 (07:48→21:03)
[2021-05-24] MEDS: RIVAROXABAN 10 MG TABLET PO SCH (07:48)
[2021-05-24] MEDS: MULTIVITAMIN TAB PO SCH (07:48)
--- NOTE | 2021-05-24 14:40 | Ultrasound Report ---
US venous doppler LE RT CLINICAL HISTORY: Right calf tenderness, r/o DVT TECHNIQUE: Right lower extremity real-time compression venous ultrasound with Color Doppler imaging. Utilizing real-time ultrasonic imaging multiple real time high-resolution ultrasonic images with comp ression and noncompression maneuvers of the deep venous system in addition to color doppler imaging w ere performed from the common femoral vein through the proximal calf veins. COMPARISON: None available at the time of this dictation. FINDINGS: Currently there is normal compressibility of the deep venous system from the common femoral vein thro ugh the proximal calf veins. No current evidence of acute thrombosis is identified. Impression: No evidence of deep venous thrombus. ACT 112: Negative or not required by law. Electronically signed by: Michele Sorto M.D. 05/24/2021 2:39 PM
[2021-05-24] MEDS: SENNA 8.6 MG TAB PO SCH (21:01)
--- NOTE | 2021-05-24 21:30 | Hospitalist Progress Note ---
Date of Service May 24, 2021 Assessment & Plan (1) Degenerative arthritis of knee, bilateral: Plan: Degenerative arthritis of knee, bilateral Status post bilateral TKA by Dr. Cowart, POD #4 On postop complication Continue pain control Continue incentive spirometry Hgb 9.8 Continue monitor PT/OT eval Fall precaution Doppler of RLE showed no evidence of PE Stable from medicine standpoint to discharge home Near syncope Dizziness Code purple called on 05/21 Possible related to orthostatic hypotension vs vasovagal due to severe pain Systolic BP during the code meg was in the 70's Received gentle hydration Continue monitor closely Fall precaution Resolved Hyperglycemia Hba1c 4.8 Continue monitor BS DVT px On Rivaroxaban Full code Admission and Anticipated Discharge Date Admission Date: May 23, 2021 Subjective Patient was seen and examined for postop follow-up Lying in bed with no acute distress Pt said that he feels better today He was able to walk in the hallway today with therapy with no distress He said that he is having pain behind right knee that radiated to his calf area Denies any Chest pain, palpitation, dizziness, shortness of breath. Review of Systems Review of Systems: All systems reviewed & are unremarkable except as noted in Subjective Physical Exam Physical Exam: General- No acute distress Head- at raumatic Eyes- PER RL, EOMI, ENT- felisha pharynx clear Neck - supple, no JVD L ungs- clear to aus cultation Heart- r egular rhythm; no murmur Abdomen- no rmal bowel sounds, soft, nontender E xtremities- no ca lf tenderness, b/l knee tenderness N euro- alert, orien jovana x 3; PERRL, EO [place]; no facial pals y; no dysarthria S kin- warm & dry Results & Data Results & Data ([facility]) Vital Signs (Past 12 Hours) Vital Signs Temp Pulse Resp BP Pulse Ox 05/24/21 15:06 37.1 C 88 16 134/73 95
[2021-05-25] MEDS: oxyCODONE HCL IR 5 MG TAB (IMMEDIATE RELEASE) PO PRN ×2 (06:03→10:53)
[2021-05-25] MEDS: ACETAMINOPHEN 500 MG TAB PO SCH (06:03)
[2021-05-25] MEDS: DOCUSATE SODIUM 100 MG CAP PO SCH (08:34)
--- NOTE | 2021-05-25 08:34 | Orthopedic Progress Note ---
Date of Service May 25, 2021 Assessment & Plan (1) Degenerative arthritis of knee, bilateral: Plan: Post op day 6 status post bilateral total knee arthroplasties PT/OT protocols. Weightbearing as tolerated. DVT prophylaxis -Xarelto p.o. daily, SCDs, LEAH lincoln. Pain management -as written. Orthostatic hypotension-progressing. Patient ambulated a total of 120 feet yesterday without incident. DC planning-patient requesting to go home. We will have him do his physical therapy this morning and unless he has any further incidences of lightheadedness and or syncopal episodes, the patient has been progressing well and we will plan on sending him home with home health services. Admission and Anticipated Discharge Date Admission Date: May 23, 2021 Subjective Postop day 6 Patient sitting up in chair at the bedside eating his breakfast. No new complaints. States he is not having any lightheadedness at this time. Did well in PT yesterday. We discussed his discharge plans. Initial notes from yesterday were [facility] a [facility] facility. Patient feels that he is doing better now and that he does not want to go to a rehab. He would like to go home with home health services. Physical Exam Physical Exam: Santiago dressings are clean, dry, and intact. Calves are soft and nontender. Neurovascular is intact. Toes mobile. Vital signs remaining stable. Results & Data ([facility]) Vital Signs (Past 12 Hours) Vital Signs Temp Pulse Resp BP Pulse Ox 05/25/21 07:28 36.9 C 76 16 116/71 96 05/24/21 22:05 37.2 C 96 H 16 137/81 96
[2021-05-25] MEDS: RIVAROXABAN 10 MG TABLET PO SCH (08:35)
[2021-05-25] MEDS: MULTIVITAMIN TAB PO SCH (08:35)
[2021-05-25] MEDS: MoRPHine SULFATE CR 15 MG TABCR PO SCH (08:36)
--- NOTE | 2021-05-25 11:25 | Discharge Summary ---
Date of Service May 25, 2021 Admission HPI Per Admitting Provider Mr Celso BRISENO is a 56 year old male who complains of bilateral knee pain, presents for pre-op evaluation prior to bilateral total knee replacements at [facility]. He states that the symptoms have been chronic non-traumatic and has gradually worsened. Currently the patient states that the symptoms are moderate-severe and is described as aching, throbbing, sharp and shooting. The symptoms are aggravated by ascending stairs, daily activities, descending stairs, driving, exercise, first steps while awake, jumping, kneeling, movement, repetitive activities, sleeping in any position, squatting, standing and walking. In additi on to knee pain equally on both sides the patient is also experiencing decreased mobility, crepitus, difficulty bending, difficulty going to sleep, instability, joint pain, limping, locking, nighttime awakening, pain, stiffness, tenderness and weakness. Prior NSAIDs include IBU and Aleve. Patient has had arthroscopic surgery. 04/10/12 Dr. Minor performed Arthroscopic partial medial meniscectomy, right knee. 02/08/11 Dr. Cowart performed Arthroscopic partial medial meniscectomy, Removal of multiple chondral loose bodies. Admission Exam Per Admitting Provider Physical Exam: HT: 5ft 8in WT: 81.6kg BP: 140/82 Pulse: 90 Constitutional: WD/WN, vitals as above no acute distress Respiratory: normal respiratory effort, lungs clear to auscultation no respiratory distress, no labored breathing and does not use accessory muscles Cardiovascular: RRR, no murmur, no edema Gastrointestinal (Abdomen): normal bowel sounds, soft, nontender, no hepatosplenomegaly Musculoskeletal: Bilateral knee Physical exam Overall patient has varus alignment bilaterally, there is no atrophy or ecchymosis noted, +1 suprapatellar effusion in both knees, positive tenderness to both medial and lateral joint lines right knee, more medial sided tenderness to the left knee. negative patellar apprehension, positive crepitation noted to both knees with active ROM. bilateral knees stable to valgus and varus stress, efrain negative, posterior drawer negative. Range of motion right knee 0/3/110, left knee 0/3/115. lower extremities are neurovascularly intact, calf soft and non tender, DP pulse +2 bilaterally. Principal Diagnosis Djd Bilateral Knees Discharge Data Allergies Allergy/AdvReac Type Severity Reaction Status Date / Time No Known Allergies Allergy Verified 05/19/21 08:35 Consultations 05/14/21 17:11 Consult Hospitalist Routine Procedures Performed Operation Date: 05/19/21 10:35 Actual Procedures p Bilateral Total Knee Arthroplasty(Bilateral) - Kyrie Cowart DO Ordered Studies 05/19/21 05:00 US - OR guided needle placemen Routine 05/24/21 12:23 US venous doppler LE RT Urgent Hospital Course (1) Degenerative arthritis of knee, bilateral: Patient was admitted on the above-noted date and had the above-noted surgery performed of which she tolerated well.Hospitalist service was consulted for medical management. On his first postoperative day, he was sitting up in bed awake and alert. He had no complaints. Pain was controlled. Dressings were intact. Calves soft nontender. Neurovascular intact. Toes mobile. Vital signs were stable he was afebrile and hemoglobin was 12.3. He was noted to have 18.6 WBC which was felt to be secondary to surgical stress and preoperative steroids. Patient was started on PT and OT protocols and continued on DVT prophylaxis and pain management. By the second postoperative day, he was doing well in the morning and remaining stable however, at one point nursing staff had gotten the patient up to use the bathroom. Patient states that when he got into the bathroom he began having increased pain in the knees. He had realized that his blocks were wearing off and he was having more pain. This caused him to have a syncopal episode of which was witnessed and controlled by nursing staff. Dr. Martin was called and started on the on a fluid bolus. Patient up at that time was only taking Tylenol for pain control because he was having good pain control through his nerve blocks. We discussed the pain medications he had available and he started using them. Over the next several days however the patient had developed orthostatic hypotension and continued to have lightheadedness when getting out of bed. His hemoglobin preoperatively was ar ound 15 and had dropped down to low tens to high nines. Dr. Martin give the patient a another bolus and started him on gentle hydration. Over the next several days the patient slowly improved. There was question of whether he should attend a rehab facility versus go home with home health. Patient [facility] and authorization would have to wait until Monday when insurance facilities and [facility] could look into the authorization. By his fifth postoperative day he had increased his ambulation distance and was having much less in the way of lightheadedness. He continued to remain medically stable. No further syncopal episodes. His Titi dressing is remaining clean, dry, intact. Calves remain soft and nontender. Neurovascular is intact. Toes are mobile. By 05/25/2021, the patient was ambulating almost independently with a walker during his physical therapy session. After discussing his PT progress with physical therapist, she felt the patient was more than adequate to go home with home health services. Blood pressures remaining stable and it was felt that he can be discharged home with home health services. Total Time Total Time Spent Total Time Spent (In Minutes): 10 Discharge Plan Discharge Items Patient Disposition: Home - Home Health Services Reason For Visit: Right Knee Osteoarthritis, Left Knee Osteoarthriti Discharge Diagnosis: bilateral total knee replacements Activity: Per Instructions section Lifting: Wait until after follow-up appointment Weightbearing Comment: WBAT with walker Non-emergency contact: Surgeon Call non-emergency contact if: you have any medication questions, your temperature is above 101, your wound has increased redness, your wound has increased drainage and your wound pain has increased Follow-up/Referrals: Kyrie Cowart DO [Surgeon] - (Follow up in 10-14 days from the day of your surgery for your first wound check. ) Hal Curiel MD [Primary Care Provider] - (Date & Time 05/31/2021 12:20 PM Provider Mari Brown MD Department Family Medicine [facility] ) Diet: Regular Addtl Attending Provider Instructions: ACTIVITY RECOMMENDATIONS: SELF CARE INSTRUCTIONS AFTER TOTAL KNEE REPLACEMENT A. You may need to continue a physical therapy program after discharge from the hospital. There are several options available to you. Your doctor will assist you in selecting the best one for you. 1. An out-patient facility 2 to 3 times a week for therapy or home therapy. 2. Continue working on all exercises taught to you in the hospital. Your goals should be to increase bending of your knee to 90 degrees and beyond and to fully straighten your knee. B. You may progress at your own pace from walking with a walker or crutches to a cane; then to no assistive devices. C. Make walking a part of your daily routine. Be up as much as comfortable with rest periods throughout the day. Rest with leg elevation is very important. Use the ice wrap frequently for the first 3-4 weeks. D. There are no restrictions on activities. You may ride in a car, shop, participate in business objects consultant and all social activities. E. Wear the long elastic stockings (LEAH hose) 20 hours a day for 2 weeks after surgery. They can be removed several times a day for laundering and for a bath. F. You may shower, no tub baths until cleared by your doctor. SPECIAL CARE INSTRUCTIONS: VERY IMPORTANT TO READ AND REVIEW A. There are a few signs you need to watch for after you are home. Call [facility] if you notice any of the followin. Increased severe knee pain. Some pain is expected especially when you exercise. 2. Increased swelling in your leg or knee; pain or swelling of the calf muscle in either lower leg. 3. Any fluid drainage from the incision. 4. Shortness of breath or chest pain. B. Please call [facility] at if you have any concerns or questions about your operation or recovery. The doctor or his nurse will return your call promptly. C. You must take antibiotics before dental work, bladder, bowel or other surgery. Your doctor will provide you with a permanent care to carry describing this precaution. IMPORTANT: * REMEMBER TO TAKE ASPIRIN, 81 MG, TWICE DAILY FOR 4 WEEKS UNLESS OTHERWISE DIRECTED. THIS IS YOUR BLOOD THINNER. * HIGH RISK PATIENTS MAY BE PRESCRIBED A STRONGER BLOOD THINNER. THIS WILL BE PROVIDED AT DISCHARGE. * CALL IF INCREASED PAIN, REDNESS, DRAINAGE OR FEVER GREATER THAT 101. * WEAR LEAH HOSE 20 HOURS PER DAY FOR 2 WEEKS. * TITI Dressing - This is a large suction dressing covering your incision. This will help pull any excess drainage from the wound and allow your incision to heal properly. You may shower with this if you can keep the unit outside of the shower. If any bleeding or leakage is noted please call your doctor's office. This will remain on your incision for 7 days and then should be removed. This can be done yourself or by the home nursing staff if applicable. The entire unit is disposable once removed. Once removed, keep incision clean and dry. If redness or drainage is noted, please call your surgeon. AFTER TITI DRESSINGS HAVE BEEN REMOVED, FOLLOW THE INSTRUCTIONS BELOW. *REMOVE YOUR TITI DRESSINGS ON 05/27/21* * DERMABOND Prineo- This is a mesh tape dressing that is covered with glue. It should remain in place until the incision is properly healed, usually 10-14 days. This dressing is designed to naturally slough off. You may trim the excess mesh tape as it peels off. Incision may be briefly wet in a shower. Dry immediately by blotting with a clean, dry towel. Do not bath or swim until instructed by your doctor. Do not scratch, rub, or pick at the dressing. Do not apply any topical ointments or lotions until dressing is completely removed and/or instructed by your doctor. There may be a small piece of suture material at one end of your incision. Do not pull or trim this. If it is bothersome or catching on clothing, you may cover it with a band-aid. IF INCISION IS LEAKING THROUGH DRESSING, CALL THE OFFICE . FOLLOW UP VISIT: If appointment is not already scheduled: Please call [facility] to make a follow-up appointment for 2 weeks after your surgery at . Pending Studies at Discharge: No Stand-Alone Forms: My [facility], Opioid Pain Management, Smoking Cessation Medications and DC Order Prescriptions: New Xarelto 10 mg Tablet 10 mg PO DAILY 28 Days Qty: 28 RF: 0 acetaminophen [Tylenol Extra Strength] 500 mg Tablet 1,000 mg PO Q8 21 Days Qty: 126 RF: 0 oxycodone 5 mg Tablet 5 - 10 mg PO Q6H PRN (Reason: pain) Qty: 30 RF: 0 docusate sodium 100 mg Capsule 100 mg PO BID 10 Days Qty: 20 RF: 0 cefadroxil 500 mg capsule 500 mg PO BID 14 Days Qty: 28 RF: 0 Discontinued aspirin 325 mg Tablet 650 mg PO DAILY PRN (Reason: Pain) RF: 0 naproxen sodium [Aleve] 220 mg Capsule 220 mg PO Q12H PRN (Reason: Pain) RF: 0 Discharge Orders: Discharge Order (Routine); Ordered 05/25/21 Ordered By: Lucio Velasco Admission Data Admit Date/Time: 05/23/21 10:37 Attending Provider: Kyrie Cowart Admit Provider: Kyrie Cowart Primary Care Provider: Hal Curiel Other Providers: Javon Reyna ; Sana Martin ; Jerry Nieves [facility] ; [facility] ; [facility] Other Interventions: Discharge Summary Assessment (RN) Last Done: 05/25/21 11:10
--- NOTE | 2021-05-25 13:01 | Hospitalist Progress Note ---
Date of Service May 25, 2021 Assessment & Plan (1) Degenerative arthritis of knee, bilateral: Plan: Degenerative arthritis of knee, bilateral Status post bilateral TKA by Dr. Cowart, POD #4 On postop complication Continue pain control Continue incentive spirometry Hgb 9.8 Continue monitor PT/OT eval Fall precaution Doppler of RLE showed no evidence of PE Stable from medicine standpoint to discharge home Acute blood loss anemia Hgb preop 12.3 Hgb 9.8 today Advised pt to check CBC in 1 week outpatient with his PCP Near syncope Dizziness Code meg called on 05/21 Possible related to orthostatic hypotension vs vasovagal due to severe pain Systolic BP during the code meg was in the 70's Received gentle hydration Continue monitor closely Fall precaution Resolved Hyperglycemia Hba1c 4.8 Continue monitor BS DVT px On Rivaroxaban Full code Admission and Anticipated Discharge Date Admission Date: May 23, 2021 Subjective Patient was seen and examined for postop follow-up Lying in bed with no acute distress Pt said that he feels better today Denies any Chest pain, palpitation, dizziness, shortness of breath. Review of Systems Review of Systems: All systems reviewed & are unremarkable except as noted in Subjective Physical Exam Physical Exam: General- No acute distress Head- at raumatic Eyes- PER RL, EOMI, ENT- felisha pharynx clear Neck - supple, no JVD L ungs- clear to aus cultation Heart- r egular rhythm; no murmur Abdomen- no rmal bowel sounds, soft, nontender E xtremities- no ca lf tenderness, b/l knee tenderness N euro- alert, orien jovana x 3; PERRL, EO IA; no facial pals y; no dysarthria S kin- warm & dry Results & Data Results & Data ([facility]) Vital Signs (Past 12 Hours) Vital Signs Temp Pulse Resp BP BP Pulse Ox 05/25/21 11:10 36.9 C 76 16 134/73 116/71 96 05/25/21 07:28 36.9 C 76 16 116/71 96
== END 2021-05-25 13:32 | disposition home health service (06) | DRG 462 ==
LOC: ASU 07:59 → 3E 07:59